=== PATIENT | female | born 1960 | race Hispanic/Latino ===

== ENCOUNTER 2023-02-02 09:34 | Inpatient (IN) | payer MEDICARE, OTHER ==
[~2023-02-02] VITALS: Ht 165.1 cm; Wt 70.0 kg
[2023-02-02 10:24] LABS: BASOPHILS # (AUTO) 0.1 (0.0-0.1); BASOPHILS % 0.6 % (0.0-1.0); EOSINOPHILS # (AUTO) 0.1 (0.0-0.4); EOSINOPHILS % 0.9 % (0.0-6.0); HEMATOCRIT 31.4 % (34.2-44.1); HEMOGLOBIN 9.8 g/dL (12.0-16.0); LYMPHOCYTES # (AUTO) 2.4 (1.0-3.2); LYMPHOCYTES % 17.7 % (18.0-39.1); MEAN CORPUSCULAR HGB CONC 31.2 g/dL (31-35); MEAN CORPUSCULAR VOLUME 99.4 fL (81-99); MONOCYTES % 7.5 % (4.4-11.3); NEUTROPHILS # (AUTO) 9.6 (2.1-6.9); NEUTROPHILS % 71.2 % (38.7-80.0); PLATELET COUNT 325 x10e3/uL (140-360); RED BLOOD COUNT 3.16 x10e6/uL (3.6-5.1); RED CELL DISTRIBUTION WIDTH 13.2 % (11.7-14.4)
[2023-02-02 10:38] LABS: INR 1.11; PROTHROMBIN TIME 14.8 seconds (11.9-14.5)
[2023-02-02 10:39] LABS: PARTIAL THROMBOPLASTIN TIME 27.7 seconds (23.8-35.5)
[2023-02-02 10:56] LABS: ALBUMIN 2.3 g/dL (3.5-5.0); ALBUMIN/GLOBULIN RATIO 0.5 (0.8-2.0); ANION GAP 16.6 mmol/L (8-16); CALCIUM 9.1 mg/dL (8.4-10.2); CREATININE, SERUM 0.79 mg/dL (0.57-1.11); POTASSIUM 3.6 mmol/L (3.5-5.1)
[2023-02-02 11:33] LABS: CLARITY,URINE CLEAR (CLEAR); COLOR,URINE YELLOW (YELLOW); KETONES,URINE 1+ (NEGATIVE); LEUKOCYTE ESTERASE ,URINE TRACE (NEGATIVE); NITRITE,URINE NEGATIVE (NEGATIVE); PROTEIN,URINE DIPSTICK >=300 (NEGATIVE); URINE UROBILINOGEN 1 mg/dL (0.2 - 1)
[2023-02-02 11:55] LABS: WBC,URINE (MAN) >50 /HPF (0-5)
[2023-02-02 11:56] LABS: BACTERIA,URINE MODERATE /HPF; EPITHELIAL CELLS,URINE MODERATE /LPF
[2023-02-02 11:57] LABS: YEAST,URINE MODERATE
[2023-02-02] MEDS ORDERED: SODIUM CHLORIDE 0.9% 1000ML 1,000 ML IV ONE ×2 (13:00)
[2023-02-02] MEDS ORDERED: CEFTRIAXONE 1 GM VIAL IV ONE (13:00)
[2023-02-02] MEDS: OSELTAMIVIR PHOSPHATE 75 MG CAP PO SCH ×2 (14:20→21:00)
[2023-02-02] MEDS: SODIUM CHLORIDE 0.9% 1000ML 1,000 ML IV SCH (17:00)
[2023-02-02] MEDS ORDERED: ONDANSETRON HCL INJ 2MG/ML 2ML 2 MG/ML VIAL IV PRN (17:00)
[2023-02-02 22:56] LABS: HEMATOCRIT 28.2 % (34.2-44.1); HEMOGLOBIN 8.8 g/dL (12.0-16.0)
[2023-02-02 23:15] LABS: CREATINE KINASE MB 0.6 ng/mL (0-5.0)
[2023-02-02 23:35] VITALS: BP 100/53
[2023-02-03] VITALS (12 sets, daily range): BP systolic 79–141; BP diastolic 49–78
[2023-02-03] MEDS ORDERED: QUETIAPINE FUMA25 MG PO (00:51)
[2023-02-03] MEDS ORDERED: NAMENDA5 MG PO (00:51)
[2023-02-03] MEDS ORDERED: LIPITOR20 MG PO (00:51)
[2023-02-03] MEDS ORDERED: NEURONTIN300 MG PO (00:51)
[2023-02-03] MEDS ORDERED: OLANZAPINE5 MG PO (00:51)
[2023-02-03] MEDS ORDERED: TRAZODONE HCL150 MG PO (00:51)
[2023-02-03] MEDS ORDERED: LASIX20 MG PO (00:51)
[2023-02-03] MEDS ORDERED: LISINOPRIL5 MG PO (00:51)
[2023-02-03] MEDS ORDERED: LANTUS 3ML100 UNITS/ (00:51)
[2023-02-03] MEDS ORDERED: DIVALPROEX SOD250 MG PO (00:51)
[2023-02-03 03:22] LABS: HEMATOCRIT 26.9 % (34.2-44.1); HEMOGLOBIN 8.1 g/dL (12.0-16.0)
[2023-02-03] MEDS: SODIUM CHLORIDE 0.9% 1000ML 1,000 ML IV SCH ×3 (04:04→23:48)
[2023-02-03 04:57] LABS: % IRON SATURATION 13 % (15-50); IRON 35 ug/dL (50-170); TOTAL IRON BINDING CAPACITY 272 ug/dL (261-478); TRANSFERRIN 194 mg/dL (180-382)
[2023-02-03 06:16] LABS: BASOPHILS # (AUTO) 0.1 (0.0-0.1); BASOPHILS % 0.4 % (0.0-1.0); HEMATOCRIT 26.4 % (34.2-44.1); HEMOGLOBIN 8.1 g/dL (12.0-16.0); LYMPHOCYTES # (AUTO) 1.2 (1.0-3.2); LYMPHOCYTES % 8.6 % (18.0-39.1); MEAN CORPUSCULAR HEMOGLOBIN 30.7 pg (28-32); MEAN CORPUSCULAR HGB CONC 30.7 g/dL (31-35); MONOCYTES # (AUTO) 1.2 (0.2-0.8); MONOCYTES % 8.8 % (4.4-11.3); PLATELET COUNT 260 x10e3/uL (140-360); RED BLOOD COUNT 2.64 x10e6/uL (3.6-5.1); RED CELL DISTRIBUTION WIDTH 13.3 % (11.7-14.4)
[2023-02-03 06:43] LABS: ALBUMIN 1.8 g/dL (3.5-5.0); ALBUMIN/GLOBULIN RATIO 0.4 (0.8-2.0); ANION GAP 15.5 mmol/L (8-16); CREATININE, SERUM 0.79 mg/dL (0.57-1.11); POTASSIUM 3.5 mmol/L (3.5-5.1)
[2023-02-03 07:32] LABS: CREATINE KINASE MB 0.5 ng/mL (0-5.0)
[2023-02-03] MEDS: OSELTAMIVIR PHOSPHATE 75 MG CAP PO SCH ×2 (08:30→17:46)
[2023-02-03] MEDS ORDERED: OSELTAMIVIR PHOSPHATE 75 MG CAP PO SCH (09:00)
[2023-02-03] MEDS ORDERED: SODIUM CHLORIDE 0.9% 250ML 250 ML IV ONE (09:15)
[2023-02-03] MEDS ORDERED: FUROSEMIDE INJ 10 MG/ML 2 ML VIAL IV ONE ×2 (09:15→17:50)
[2023-02-03] MEDS ORDERED: SODIUM CHLORIDE 0.9% 250ML 250 ML ONE (13:42)
[2023-02-03] MEDS ORDERED: BISACODYL 5 MG TAB EC PO ONE ×3 (14:00→16:00)
[2023-02-03] MEDS ORDERED: DEXTROSE 50% SYRINGE 50 ML IV PRN (14:15)
[2023-02-03 14:34] LABS: CREATINE KINASE 61 IU/L (29-168)
[2023-02-03] MEDS ORDERED: PEG (High)/E-LYTE SOLN 4,000 ML BTL PO ONE (17:00)
[2023-02-03] MEDS: INSULIN LISPRO 100 UNIT/1 ML 3ML VIAL SQ SCH ×2 (17:43→20:59)
[2023-02-04 00:30] VITALS: BP 102/83
[2023-02-04] MEDS ORDERED: SODIUM CHLORIDE 0.9% 250ML 250 ML ONE (02:32)
[2023-02-04 04:00] VITALS: BP 150/74
[2023-02-04] MEDS ORDERED: FUROSEMIDE INJ 10 MG/ML 2 ML VIAL IV ONE (07:00)
[2023-02-04 07:24] LABS: BASOPHILS # (AUTO) 0.1 (0.0-0.1); BASOPHILS % 0.6 % (0.0-1.0); EOSINOPHILS # (AUTO) 0.1 (0.0-0.4); EOSINOPHILS % 0.7 % (0.0-6.0); HEMATOCRIT 33.5 % (34.2-44.1); HEMOGLOBIN 10.7 g/dL (12.0-16.0); LYMPHOCYTES % 14.7 % (18.0-39.1); MEAN CORPUSCULAR HGB CONC 31.9 g/dL (31-35); MEAN CORPUSCULAR VOLUME 93.8 fL (81-99); MONOCYTES % 7.5 % (4.4-11.3); NEUTROPHILS # (AUTO) 10.4 (2.1-6.9); NEUTROPHILS % 76.1 % (38.7-80.0); PLATELET COUNT 227 x10e3/uL (140-360); RED BLOOD COUNT 3.57 x10e6/uL (3.6-5.1); RED CELL DISTRIBUTION WIDTH 14.7 % (11.7-14.4)
[2023-02-04] MEDS: INSULIN LISPRO 100 UNIT/1 ML 3ML VIAL SQ SCH ×4 (07:30→21:00)
[2023-02-04 07:45] LABS: ANION GAP 12.1 mmol/L (8-16); CALCIUM 8.2 mg/dL (8.4-10.2); CREATININE, SERUM 0.65 mg/dL (0.57-1.11); POTASSIUM 3.1 mmol/L (3.5-5.1)
[2023-02-04 08:00] VITALS: BP 158/70
[2023-02-04] MEDS: OSELTAMIVIR PHOSPHATE 75 MG CAP PO SCH ×2 (08:41→17:06)
[2023-02-04 09:03] VITALS: BP 158/70
[2023-02-04] MEDS ORDERED: POTASSIUM CHLORIDE 10MEQ EA PO ONE (10:00)
[2023-02-04] MEDS ORDERED: POTASSIUM CHLORIDE 20MEQ/100ML 100 ML IV ONE (10:00)
[2023-02-04 12:00] VITALS: BP 158/70
[2023-02-04] MEDS: IRON SUCROSE 100 MG in SODIUM CHLORIDE 0.9% 100 ML IV SCH (12:52)
[2023-02-04 20:00] VITALS: BP 141/72
[2023-02-04] MEDS: SODIUM CHLORIDE 0.9% 1000ML 1,000 ML IV SCH (21:54)
[2023-02-05] VITALS (7 sets, daily range): BP systolic 111–178; BP diastolic 66–110
[2023-02-05] MEDS ORDERED: CITRATE OF MAGNESIA 300ML BOTTLE PO ONE (01:30)
[2023-02-05] MEDS: INSULIN LISPRO 100 UNIT/1 ML 3ML VIAL SQ SCH ×4 (07:30→21:00)
[2023-02-05] MEDS: SODIUM CHLORIDE 0.9% 1000ML 1,000 ML IV SCH (08:51)
[2023-02-05] MEDS: IRON SUCROSE 100 MG in SODIUM CHLORIDE 0.9% 100 ML IV SCH (09:00)
[2023-02-05] MEDS: OSELTAMIVIR PHOSPHATE 75 MG CAP PO SCH ×2 (09:00→16:53)
[2023-02-05] MEDS: COLLAGENASE OINTMENT 30 GM TUBE TP SCH (09:00)
[2023-02-05] MEDS: SODIUM CHLORIDE 0.45% 1,000 ML IV SCH (10:12)
[2023-02-05 11:37] LABS: ANION GAP 10.8 mmol/L (8-16); CREATININE, SERUM 0.49 mg/dL (0.57-1.11)
[2023-02-05 11:45] LABS: POTASSIUM 2.8 mmol/L (3.5-5.1)
[2023-02-05] MEDS ORDERED: POTASSIUM CHLORIDE 20MEQ/100ML 200 ML IV ONE (12:00)
[2023-02-05 20:47] LABS: WBC,FECAL (FECAL LACTOFERRIN) POSITIVE (NEGATIVE)
[2023-02-06] VITALS (10 sets, daily range): BP systolic 120–174; BP diastolic 65–87
[2023-02-06] MEDS: HYDRALAZINE HCL 20 MG/ML VIAL IV PRN (05:00)
[2023-02-06] MEDS: SODIUM CHLORIDE 0.45% 1,000 ML IV SCH ×2 (06:14→21:13)
[2023-02-06 07:02] LABS: BASOPHILS % 0.1 % (0.0-1.0); HEMATOCRIT 32.2 % (34.2-44.1); HEMOGLOBIN 10.6 g/dL (12.0-16.0); LYMPHOCYTES # (AUTO) 0.5 (1.0-3.2); LYMPHOCYTES % 5.3 % (18.0-39.1); MEAN CORPUSCULAR HEMOGLOBIN 31.2 pg (28-32); MEAN CORPUSCULAR HGB CONC 32.9 g/dL (31-35); MEAN CORPUSCULAR VOLUME 94.7 fL (81-99); MONOCYTES # (AUTO) 0.3 (0.2-0.8); MONOCYTES % 2.6 % (4.4-11.3); NEUTROPHILS # (AUTO) 9.3 (2.1-6.9); NEUTROPHILS % 91.4 % (38.7-80.0); PLATELET COUNT 210 x10e3/uL (140-360); RED CELL DISTRIBUTION WIDTH 13.8 % (11.7-14.4)
[2023-02-06 07:22] LABS: ANION GAP 15.5 mmol/L (8-16); CALCIUM 7.8 mg/dL (8.4-10.2); CREATININE, SERUM 0.71 mg/dL (0.57-1.11); POTASSIUM 3.5 mmol/L (3.5-5.1)
[2023-02-06] MEDS: INSULIN LISPRO 100 UNIT/1 ML 3ML VIAL SQ SCH ×4 (07:25→21:00)
[2023-02-06 07:57] LABS: MAGNESIUM 1.4 MG/DL (1.3-2.1)
[2023-02-06] MEDS: OSELTAMIVIR PHOSPHATE 75 MG CAP PO SCH ×2 (09:06→16:48)
[2023-02-06] MEDS: IRON SUCROSE 100 MG in SODIUM CHLORIDE 0.9% 100 ML IV SCH (09:07)
[2023-02-06] MEDS: COLLAGENASE OINTMENT 30 GM TUBE TP SCH (09:07)
[2023-02-06] MEDS ORDERED: MAGNESIUM SULFATE 2GM/50ML IV ONE (09:30)
[2023-02-06] MEDS ORDERED: MAGNESIUM SULFATE 2GM/50ML 50 ML IV ONE (10:00)
[2023-02-07] VITALS (8 sets, daily range): BP systolic 118–178; BP diastolic 61–98
[2023-02-07] MEDS ORDERED: CYANOCOBALAMIN INJ 1,000 MCG/ML VIAL IM ONE (01:30)
[2023-02-07] MEDS: SODIUM CHLORIDE 0.45% 1,000 ML IV SCH ×2 (02:30→12:06)
[2023-02-07] MEDS: CYANOCOBALAMIN INJ 1,000 MCG/ML VIAL IM SCH (09:00)
[2023-02-07] MEDS: MESALAMINE 400 MG CAP PO SCH ×2 (09:11→17:06)
[2023-02-07] MEDS: INSULIN LISPRO 100 UNIT/1 ML 3ML VIAL SQ SCH ×4 (09:11→21:00)
[2023-02-07] MEDS: IRON SUCROSE 100 MG in SODIUM CHLORIDE 0.9% 100 ML IV SCH (09:12)
[2023-02-07] MEDS: OSELTAMIVIR PHOSPHATE 75 MG CAP PO SCH (09:12)
[2023-02-07] MEDS: COLLAGENASE OINTMENT 30 GM TUBE TP SCH (09:22)
[2023-02-07] MEDS: HYDRALAZINE HCL 20 MG/ML VIAL IV PRN (12:01)
[2023-02-08 00:52] VITALS: BP 131/54
[2023-02-08] MEDS: SODIUM CHLORIDE 0.45% 1,000 ML IV SCH ×2 (02:46→18:35)
[2023-02-08 04:00] VITALS: BP 156/91
[2023-02-08 09:00] VITALS: BP 110/78
[2023-02-08 09:19] VITALS: BP 110/78
[2023-02-08] MEDS: MESALAMINE 400 MG CAP PO SCH ×2 (09:54→16:48)
[2023-02-08] MEDS: IRON SUCROSE 100 MG in SODIUM CHLORIDE 0.9% 100 ML IV SCH (09:55)
[2023-02-08] MEDS: CYANOCOBALAMIN INJ 1,000 MCG/ML VIAL IM SCH (09:56)
[2023-02-08] MEDS: INSULIN LISPRO 100 UNIT/1 ML 3ML VIAL SQ SCH ×4 (10:04→21:00)
[2023-02-08] MEDS ORDERED: SODIUM CHLORIDE 0.9% 250ML 250 ML ONE (10:20)
[2023-02-08] MEDS: COLLAGENASE OINTMENT 30 GM TUBE TP SCH (11:59)
[2023-02-08 12:56] VITALS: BP 138/95
[2023-02-08 16:19] VITALS: BP 151/64
[2023-02-08] MEDS ORDERED: MESALAMINE 1,000 MG SUPP RC SCH (21:00)
[2023-02-09] MEDS ORDERED: ACETAMINOPHEN 325 MG TAB PO PRN (00:15)
[2023-02-09 06:37] VITALS: BP 151/64
[2023-02-09] MEDS: CYANOCOBALAMIN INJ 1,000 MCG/ML VIAL IM SCH (08:23)
[2023-02-09] MEDS: SODIUM CHLORIDE 0.45% 1,000 ML IV SCH (08:23)
[2023-02-09] MEDS: INSULIN LISPRO 100 UNIT/1 ML 3ML VIAL SQ SCH (08:42)
[2023-02-09] MEDS ORDERED: IRON-VITAMIN-MINERAL CAPSULE PO SCH (09:00)
[2023-02-09 09:05] VITALS: BP 141/99
[2023-02-09 09:56] VITALS: BP 160/87
[2023-02-09] MEDS ORDERED: INSULIN GLARGINE 100 UNITS/ML VIAL SQ ONE (10:00)
[2023-02-09 12:13] VITALS: BP 141/99
[2023-02-09] MEDS ORDERED: ONDANSETRON HCL 4 MG ORAL DISINTEGRATING TAB PO PRN (12:30)
== END 2023-02-09 12:34 | disposition home or self-care (01) | DRG 871 ==
LOC: ER 10:07 → ERHOLD 16:49 → IMCU 23:16 → MED/SURG2 02-04 17:18
PROVIDERS: ADMIT Internal Medicine; ATTEND Internal Medicine
PROC: 30233N1 Transfusion of Nonautologous Red Blood Cells into Peripheral Vein, Percutaneous Approach (ICD-10-PCS; 2023-02-03)
PROC: 0DB78ZX Excision of Stomach, Pylorus, Via Natural or Artificial Opening Endoscopic, Diagnostic (ICD-10-PCS; 2023-02-05)
PROC: 0DBM8ZX Excision of Descending Colon, Via Natural or Artificial Opening Endoscopic, Diagnostic (ICD-10-PCS; 2023-02-05)
PROC: 0DBP8ZX Excision of Rectum, Via Natural or Artificial Opening Endoscopic, Diagnostic (ICD-10-PCS; 2023-02-05)
PROC: 02HV33Z Insertion of Infusion Device into Superior Vena Cava, Percutaneous Approach (ICD-10-PCS; 2023-02-05)
PROC: 0DBK8ZX Excision of Ascending Colon, Via Natural or Artificial Opening Endoscopic, Diagnostic (ICD-10-PCS; principal; 2023-02-05 18:05)
PROC: 0DBN8ZX Excision of Sigmoid Colon, Via Natural or Artificial Opening Endoscopic, Diagnostic (ICD-10-PCS; 2023-02-05 18:05)
DX: A41.9 Sepsis, unspecified organism (principal); J69.0 Pneumonitis due to inhalation of food and vomit; K20.91 Esophagitis, unspecified with bleeding; R57.8 Other shock; K51.30 Ulcerative (chronic) rectosigmoiditis without complications; D62 Acute posthemorrhagic anemia; K63.5 Polyp of colon; G20 Parkinson's disease; K64.8 Other hemorrhoids; Z20.822 Contact with and (suspected) exposure to COVID-19; F03.C0 Unspecified dementia, severe, without behavioral disturbance, psychotic disturbance, mood disturbance, and anxiety; Z99.3 Dependence on wheelchair; Z88.4 Allergy status to anesthetic agent; Z88.5 Allergy status to narcotic agent; N30.90 Cystitis, unspecified without hematuria; L89.620 Pressure ulcer of left heel, unstageable; J10.1 Influenza due to other identified influenza virus with other respiratory manifestations
CPT/HCPCS: 36415; 36569; 43239; 45378; 71045; 71250; 74176; 80048; 80053; 81001; 82270; 82550; 82553; 82607; 82746; 82948; 83540; 83605; 83630; 83735; 83993; 84100; 84132; 84466; 84484; 85014; 85018; 85025; 85045; 85610; 85730; 86850; 86900; 86920; 87045; 87086; 87177; 87324; 87328; 87449; 88304; 88305; 88312; 88342; 93005; 96361; 99252; 99285; J0696; J1756; J1940; J2405; J2543; J3420; J3475; J3480; J7030; J7050; P9016